=== PATIENT | female | born 1995 | race Two or more races ===

== ENCOUNTER → 2017-11-04 | Outpatient (CLI) | payer MEDICAID | LOC: FIMAGING 12:21 | PROVIDERS: ATTEND Obstetrics & Gynecology | DX: Z82.79 Family history of other congenital malformations, deformations and chromosomal abnormalities (principal); Z3A.12 12 weeks gestation of pregnancy ==

== ENCOUNTER → 2017-12-30 | Outpatient (CLI) | payer MEDICAID | LOC: FIMAGING 10:41 | PROVIDERS: ATTEND Obstetrics & Gynecology | DX: Z34.82 Encounter for supervision of other normal pregnancy, second trimester (principal); Z3A.20 20 weeks gestation of pregnancy; Z84.81 Family history of carrier of genetic disease; Z82.79 Family history of other congenital malformations, deformations and chromosomal abnormalities ==

== ENCOUNTER → 2018-03-24 | Outpatient (CLI) | payer MEDICAID | LOC: FIMAGING 13:52 | PROVIDERS: ATTEND Obstetrics & Gynecology | DX: O26.833 Pregnancy related renal disease, third trimester (principal); Z3A.32 32 weeks gestation of pregnancy ==